=== PATIENT | male | born 1935 | race American Indian/Alaskan Native ===

== ENCOUNTER 2022-04-29 16:23 | Emergency (ER) | payer MEDICARE ==
[2022-04-29] MEDS ORDERED: SODIUM CHLORIDE 0.9% 1000 ML 1,000 ML IV ONE ×2 (16:58→19:01)
[2022-04-29 17:56] LABS: Hematocrit 31.5 % (35.5-45.6); Hemoglobin 10.1 gm/dl (11.8-15.2); Mean Corpuscular HGB Conc 32 % (32-34); Mean Corpuscular Volume 103 fl (84-94); Platelet Count 105 K/mm3 (140-440); Red Blood Count 3.07 M/mm3 (3.65-5.03); Red Cell Distribution Width 15.4 % (13.2-15.2)
--- NOTE | 2022-04-29 18:07 | Emergency Department Report ---
ED General Adult HPI - General Chief complaint: Urogenital-Male Stated complaint: CATHETER LEAKAGE PUI?: No Time Seen by Provider: 04/29/22 16:59 Source: patient, EMS Mode of arrival: Stretcher Limitations: Physical Limitation - Related Data Previous Rx's Medication Instructions Recorded Last Taken Type levoFLOXacin [Levaquin TAB] 500 mg PO QDAY #5 tablet 04/29/22 Unknown Rx Allergies Allergy/AdvReac Type Severity Reaction Status Date / Time No Known Allergies Allergy Verified 04/29/22 16:29 ED Review of Systems ROS: Stated complaint: CATHETER LEAKAGE Other details as noted in HPI Comment: All other systems reviewed and negative ED Past Medical Hx - Past Medical History Previous Medical History?: Yes Additional medical history: DEMENTIA - Surgical History Past Surgical History?: Yes - Family History Family history: no significant - Social History Smoking Status: Never Smoker Substance Use Type: None - Medications Home Medications: Home Medications Medication Instructions Recorded Confirmed Last Taken Type levoFLOXacin [Levaquin TAB] 500 mg PO QDAY #5 tablet 04/29/22 Unknown Rx ED Physical Exam - General Limitations: No Limitations, Physical Limitation General appearance: alert, in no apparent distress - Head Head exam: Present: atraumatic, normocephalic - Eye Eye exam: Present: normal appearance - ENT ENT exam: Present: mucous membranes moist - Neck Neck exam: Present: normal inspection - Respiratory Respiratory exam: Present: normal lung sounds bilaterally. Absent: respiratory distress - Cardiovascular Cardiovascular Exam: Present: regular rate, normal rhythm. Absent: systolic murmur, diastolic murmur, rubs, gallop - GI/Abdominal GI/Abdominal exam: Present: soft, normal bowel sounds - Rectal Rectal exam: Present: deferred - Extremities Exam Extremities exam: Present: normal inspection - Back Exam Back exam: Present: normal inspection - Neurological Exam Neurological exam: Present: alert, oriented X3 - Psychiatric Psychiatric exam: Present: normal affect, normal mood - Skin Skin exam: Present: warm, dry, intact, normal color. Absent: rash ED Course Vital Signs 04/29/22 16:28 Temperature 98 F Pulse Rate 56 L Respiratory 14 Rate Blood Pressure 136/85 [Left] O2 Sat by Pulse 100 Oximetry ED Medical Decision Making - Lab Data Result diagrams: 04/29/22 17:15 04/29/22 17:15 - Medical Decision Making Labs 04/29/22 04/29/22 17:15 17:15 WBC 3.8 L RBC 3.07 L Hgb 10.1 L Hct 31.5 L MCV 103 H MCH 33 H MCHC 32 RDW 15.4 H Plt Count 105 L Sodium 141 Potassium 4.3 Chloride 110.4 H Carbon Dioxide 21 L Anion Gap 14 BUN 15 Creatinine 1.4 H Estimated GFR 48 BUN/Creatinine Ratio 11 Glucose 92 Calcium 9.7 Vital Signs 04/29/22 16:28 Temperature 98 F Pulse Rate 56 L Respiratory 14 Rate Blood Pressure 136/85 [Left] O2 Sat by Pulse 100 Oximetry TREATED FOR UTI ROCEPHIN IV 2L NS GIVEN IN ER NO FEVER WBC NORMAL NO N/V/D JORGE WITH CLOUDY MATIAS URINE JORGE CHANGED URINE WITH CX SENT WILL SEND HOME ON LEVAQUIN GIVEN RISK ASSOCIATED WITH LT INDWELLING CATHETER. NURSE HAS BEEN IN CONTACT WITH FAMILY DC HOME WITH FAMILY - AND WRITTEN DC PLAN OF CARE. - Differential Diagnosis RO UTI Critical care attestation.: If time is entered above; I have spent that time in minutes in the direct care of this critically ill patient, excluding procedure time. ED Disposition Clinical Impression: UTI (urinary tract infection), Urinary catheter (Jorge) change required Disposition: 01 HOME / SELF CARE / HOMELESS Is pt being admited?: No Does the pt Need Aspirin: No Condition: Stable Additional Instructions: JORGE WAS CHANGED KEEP PT WELL HYDRATED WITH WATER IF HE IS ON ANY ANTIBIOTICS AT HOME-- STOP THEM AND TAKE THE ONES GIVEN TO HIM IN ER TODAY WE HAVE SENT THE URINE FOR CULTURE TO MAKE SURE HE IS ON THE CORRECT ANTIBIOTICS THE PT SHOULD HAVE HIS PCP CALL IN 4 DAYS FOR THE RESULTS REFERRAL TO OUR PCP BELOW MOTRIN OR TYLENOL FOR PAIN Referrals: HARSHA CHIN MD [Staff Physician] - 3-5 Days Time of Disposition: 18:06
[2022-04-29 18:43] LABS: Calcium 9.7 mg/dL (8.4-10.2)
[2022-04-29] MEDS ORDERED: cefTRIAXone/NS 1 GM/50 ML 1 GM/50 ML BAG IV ONE (19:00)
[2022-04-29 22:31] VITALS: BP 178/94
== END 2022-04-29 22:21 | disposition home or self-care (01) ==
LOC: ED 16:23
DX: N39.0 Urinary tract infection, site not specified (principal); Z46.6 Encounter for fitting and adjustment of urinary device
CPT/HCPCS: 36415; 51702; 80048; 85027; 96361; 96365; 99284; J0696; J7030